=== PATIENT | female | born 1970 | race Caucasian/White ===

== ENCOUNTER 2021-09-11 16:31 | Emergency (ER) | payer OTHER, SELFPAY ==
[2021-09-11 16:38] VITALS: BP 140/78; PULSE 96; RESP 20; TEMP 36.7; O2SAT 98
--- NOTE | 2021-09-11 16:43 | ED.SKABFB ---
HPI - Skin/Abscess/Foreign Bdy General Chief complaint: Skin/Abscess/Foreign Body Stated complaint: Rt Hand Irritation Time Seen by Provider: 09/11/21 16:40 Source: patient Mode of arrival: ambulatory Limitations: no limitations History of Present Illness HPI narrative: Ms. Correa is a 51-year-old female patient presenting to the clinic today with complaints of right palm irritation x1 year. She reports the rash started with some blistering that was very itchy and has gradually gotten worse over the last year. She works at [employer] and she states that it is becoming an issue. Does report that the rash is itchy and very dry. No known exposure to any new environmental changes, detergents, soaps, lotions, or animals. MD complaint: rash Related Data Allergies Allergy/AdvReac Type Severity Reaction Status Date / Time guaifenesin Allergy Unknown Hives / Verified 09/11/21 16:47 Red Face Review of Systems Review of Systems: Pertinent positives per HPI. Patient denies any fever, chills, headache, visual changes, dizziness, cough, runny nose, sore throat, shortness of breath, chest pain, palpitations, nausea, vomiting, diarrhea, constipation, abdominal pain, or any urinary issues. PMFSH Comments At the time of my signature, I reviewed and agree with the nursing past medical, surgical, social, and family history. There is no relevant family history pertinent to the patient complaint. Exam Narrative: General: Well-developed, well nourished, in no apparent distress Head: Normocephalic, atraumatic. Cardio: Regular rate and rhythm, s1 and s2 normal, no murmur appreciated. Resp: Clear to auscultation bilaterally, no rhonchi, rales, wheezing or rubs. Integumentary: [place], warm, and dry, red itchy scaly dry rash with clear fluid-filled blistering to the right palm, mild peeling of skin borders. Course Course Emergency Course: Portions of this record may have been created with voice recognition software. Level of Care: Express Care Visit Vital Signs Vital signs: Vital Signs Temperature 36.7 C 09/11/21 16:38 Pulse Rate 96 09/11/21 16:38 Respiratory Rate 20 09/11/21 16:38 Blood Pressure 140/78 09/11/21 16:38 Pulse Oximetry 98 09/11/21 16:38 Temperature 36.7 C 09/11/21 16:38 Pulse Rate 96 09/11/21 16:38 Respiratory Rate 20 09/11/21 16:38 Blood Pressure 140/78 09/11/21 16:38 Pulse Oximetry 98 09/11/21 16:38 Vital signs reviewed MDM - Skin/Abscess/Foreign Bdy MDM Narrative Medical decision making narrative: At the time of assessment patient is resting comfortably on the exam chair. She reports that she has had this rash on her pump for approximately 1 year. Denies applying any creams to her palm except for lotion. States it is gradually getting worse. With the appearance of the rash it appears that she has dyshidrotic eczema. Prescription for triamcinolone ointment given and supportive measures discussed with patient. Differential Diagnosis Differential diagnosis: Likely abscess of skin or subcutaneous tissue, viral exanthem, dermatophytosis, urticaria, herpes zoster, allergic reaction to drug, cellulitis, eczema, insect bites, impetigo and contact dermatitis Discharge Plan Discharge Clinical Impression: Dyshidrotic dermatitis Patient Disposition: Home, Self-Care Condition: Stable Instructions: Antibiotic Form, Dermatitis (ED) Additional Instructions: Moisturize hands/ skin twice daily Apply triamcinolone ointment to affected area twice a day for 7 days Avoid scratching Avoid hot showers May take Benadryl as needed for itching Follow-up with your PCP in 7 days if symptoms are persisting or sooner if they worsen. Prescriptions: New triamcinolone acetonide 0.1 % ointment 1 applic topical BID 7 Days Qty: 80 RF: 0 Follow-up/Referrals: PHYSICIAN,SERVICE OPERATOR [Primary Care Provider] - Time of Disposition: 16:55 Quality [facility] Nursing Documentatio
== END 2021-09-11 17:00 | disposition home or self-care (01) ==
PROVIDERS: Emergency Provider Nurse Practitioner Family
DX: L30.1 Dyshidrosis [pompholyx] (principal)
CPT/HCPCS: 99213; G0463

== ENCOUNTER 2021-09-24 06:54 | Emergency (ER) | payer OTHER, SELFPAY ==
--- NOTE | ~2021-09-24 | CT_ITS ---
EXAMINATION: CT abdomen pelvis wo con DATE: 09/24/2021 10:10 INDICATION: Urinary tract infection and hematuria TECHNIQUE: Computed tomography (CT) of the abdomen and pelvis was performed without intravenous contr ast. Automated exposure control and iterative reconstruction technique were employed. The dose-length product was 394.70 mGy-cm. COMPARISON: None FINDINGS: Lung bases are clear. Heart size is normal. No pericardial or pleural effusion. 8 mm cyst in segment IVb of the liver. Gallbladder, spleen, pancreas and bilateral adrenal glands are normal. Kidneys and ureters are normal with no urolithiasis, hydroureteronephrosis or perinephric/ureteral stranding. Madi dder, uterus and right adnexa are normal. 2.3 cm left ovarian cyst/follicle. Bowels including the viri endix are normal. No free intraperitoneal gas or fluid. No pathologically enlarged abdominal or pelvi c lymphadenopathy. Moderate to severe disc height loss with vacuum phenomena and degenerative endplat e changes at L4-L5. IMPRESSION: 1. No urolithiasis or acute intra-abdominal/pelvic process. Reviewed, dictated and finalized at location A.
[2021-09-24 06:57] VITALS: BP 126/74; PULSE 115; RESP 18; TEMP 36.6; O2SAT 99
[2021-09-24 07:37] LABS: Add Urine Microscopic? YES; Appearance Urine Cloudy (Clear); Bacteria Urine Trace /hpf; Bilirubin Urine Negative (Negative); Blood Urine 3+ (Negative); Color Urine Yellow (Yellow); Glucose Urine UA Negative (Negative); Ketones Urine Negative (Negative); Leukocyte Esterase Ur 3+ LEU/UL (Negative); Nitrate Urine Negative (Negative); Protein Urine Negative (Negative); RBC Urine 21-50 /hpf (0-2); Specific Grav Ur 1.011 (1.001-1.035); Squamous Epithelial Cell Urine Few /hpf (Few); Urobilinogen Urine Negative mg/dL (<2.0); WBC Urine >75 /hpf
[2021-09-24 07:42] LABS: Basophils Percent Auto 0.4 % (0.2-1.2); Eosinophils Absolute Auto 0.3 K/mm3 (0-0.3); Eosinophils Percent Auto 2.9 % (0-4.4); Hematocrit 41.2 % (37.0-47.0); Hemoglobin 13.6 g/dL (12.0-15.0); Immature Granulocyte Absolute 0.05 K/mm3 (0.00-0.031); Immature Granulocyte Percent A 0.5 % (0-0.5); Lymphocytes Absolute Auto 0.65 K/mm3 (0.9-3.2); Lymphocytes Percent Auto 6.7 % (18.3-44.2); Mean Corpuscular Hemoglobin 29.2 pg (26-34); Mean Corpuscular Volume 88.6 fl (80-100); Mean Platelet Volume 9.3 fl (7.4-10.4); Monocytes Absolute Auto 0.6 K/mm3 (0.1-0.6); Neutrophils Absolute Auto 8.1 K/mm3 (1.3-6.7); Neutrophils Percent Auto 83.5 % (45.5-73.1); Platelet Count Result 182 k/mm3 (150-375); Red Blood Count 4.65 M/mm3 (4.2-5.4); Red Cell Distribution Width 13.2 % (11.5-14.5); White Blood Count 9.7 K/mm3 (4.5-10.0)
[2021-09-24 07:45] LABS: Alanine Aminotransferase 93 U/L (4-35); Albumin Level 4.1 g/dL (3.5-5.1); Alkaline Phosphatase 107 U/L (38-126); Anion Gap 7 mmol/L (8-16); Aspartate Amino Transferase 94 U/L (14-36); Bilirubin,Total 0.1 mg/dL (0.2-1.3); Blood Urea Nitrogen 7 mg/dL (7-17); Calcium 8.3 mg/dL (8.4-10.2); Carbon Dioxide 26 mmol/L (22-30); Chloride 102 mmol/L (98-107); Estimated CRCL calculation 81 ml/min; Estimated Glomerular Filt Rate > 60; Glucose 121 mg/dL (65-110); Potassium 3.9 mmol/L (3.4-5.0); Sodium 135 mmol/L (137-145)
--- NOTE | 2021-09-24 09:27 | WPDEDEXPGENP ---
HPI - General Ped General Chief complaint: Fever Stated complaint: fever, bloody urine Time Seen by Provider: 09/24/21 07:04 Source: patient Mode of arrival: ambulatory History of Present Illness HPI narrative: 51-year-old female presenting to the emergency department for evaluation of 3 days of lower abdominal pain. Patient states over the last 3 days she has had increased urinary pain and strong smelling urine associated with abdominal cramping. Patient does report subjective fever. Patient does have a remote history of UTI. Patient denies any prior history of kidney stones. Past medical history patient denies any prior history of hypertension, diabetes. Related Data Allergies Allergy/AdvReac Type Severity Reaction Status Date / Time guaifenesin Allergy Unknown Hives / Verified 09/11/21 16:47 Red Face Pediatric Review of Systems Review of Systems: CONSTITUTIONAL: Subjective fever EYES: Denies visual changes, redness, or discharge. ENT: Denies rhinorrhea, congestion, sore throat, or otalgia. CARDIOVASCULAR: Denies chest pain, palpitations, or edema. RESPIRATORY: Denies cough or dyspnea. GASTROINTESTINAL: Suprapubic abdominal pain with associated nausea without vomiting GENITOURINARY: Denies dysuria or hematuria. SKIN: Denies rash or itching. MUSCULOSKELETAL: Lower back pain NEUROLOGIC: Denies headache, numbness, or weakness. Pediatric Exam Narrative: Physical exam: APPEARANCE: Well appearing, no pain, no distress, well-nourished. HEAD: normocephalic, atraumatic. EYES: PERRLA/EOMI, conjunctivae clear. NOSE: Normal no drainage NECK: Supple. No adenopathy, no masses. RESPIRATORY: Airway patent, respirations nonlabored. Clear to auscultation bilaterally, no rales, rhonchi, wheezing. CARDIOVASCULAR: Regular rate and rhythm without murmurs rubs or gallops. ABDOMINAL: Soft, nondistended, normal bowel sounds. No CVA tenderness to palpation. Patient did have some suprapubic tenderness to palpation MUSCULOSKELETAL: Moves all extremities. Strength/ROM intact, No edema, No calf tenderness. NEURO: Alert. Cranial nerves II through XII intact. Grossly intact SKIN: Warm, dry. Normal Color PSYCHIATRIC: Normal affect/mood. Course Course Emergency Course: Patient was treated for urinary tract infection. CT showed no evidence of kidney stone. Patient was also provided Pyridium for additional pain control. Patient was encouraged to have close follow-up with her primary care physician. All questions and concerns were addressed. Vital Signs Vital signs: Vital Signs Temperature 97.8 F 09/24/21 06:57 Pulse Rate 115 H 09/24/21 06:57 Respiratory Rate 18 09/24/21 06:57 Blood Pressure 126/74 09/24/21 06:57 Pulse Oximetry 99 09/24/21 06:57 Temperature 97.8 F 09/24/21 06:57 Pulse Rate 90 09/24/21 11:04 Respiratory Rate 16 09/24/21 11:04 Blood Pressure 103/80 09/24/21 11:04 Pulse Oximetry 99 09/24/21 06:57 Medical Decision Making Vital Signs Vital Signs: Vital Signs Temperature 97.8 F 09/24/21 06:57 Pulse Rate 115 H 09/24/21 06:57 Respiratory Rate 18 09/24/21 06:57 Blood Pressure 126/74 09/24/21 06:57 Pulse Oximetry 99 09/24/21 06:57 Temperature 97.8 F 09/24/21 06:57 Pulse Rate 90 09/24/21 11:04 Respiratory Rate 16 09/24/21 11:04 Blood Pressure 103/80 09/24/21 11:04 Pulse Oximetry 99 09/24/21 06:57 Lab Data Lab results reviewed: Yes I reviewed the patient's lab results. Result diagrams: 09/24/21 07:23 09/24/21 07:23 Labs: Lab Results 09/24/21 09/24/21 09/24/21 Range/Units 07:23 07:23 07:23 WBC 9.7 (4.5-10.0) K/mm3 RBC 4.65 (4.2-5.4) M/mm3 Hgb 13.6 (12.0-15.0) g/dL Hct 41.2 (37.0-47.0) % MCV 88.6 (80-100) fl MCH 29.2 (26-34) pg MCHC 33.0 (32-36) g/dl RDW 13.2 (11.5-14.5) % Plt Count 182 (150-375) k/mm3 MPV 9.3 (7.4-10.4) fl Immature Gran % (Auto) 0.5 (0-0.5) %
[2021-09-24] MEDS: PHENAZOPYRIDINE HCL 100 MG TABLET 200 MG PO (10:59)
[2021-09-24] MEDS: CEPHALEXIN 500 MG CAPSULE PO (11:00)
[2021-09-24 11:04] VITALS: BP 103/80; PULSE 90; RESP 16
== END 2021-09-24 11:05 | disposition home or self-care (01) ==
PROVIDERS: Emergency Provider Emergency Medicine
DX: N39.0 Urinary tract infection, site not specified (principal)
CPT/HCPCS: 36415; 74176; 80053; 81001; 81025; 83605; 85025; 87077; 87086; 87088; 87186; 99284; A9270

== ENCOUNTER 2021-10-02 09:27 | Emergency (ER) | payer OTHER, SELFPAY ==
[2021-10-02 09:30] VITALS: BP 134/75; PULSE 100; RESP 18; O2SAT 98
[2021-10-02] MEDS: AMPICILLIN SULB 3 GM/NS 100 ML 3 GM/100 ML VIAL IVPB (10:00)
--- NOTE | 2021-10-02 10:04 | ED.ANIMALBIT ---
HPI - Animal Bite General Chief Complaint: Animal Bite Stated Complaint: Bilateral Arm Injury, Cat Fight Time Seen by Provider: 10/02/21 09:30 Source: patient Mode of arrival: ambulatory Limitations: no limitations History of Present Illness HPI narrative: 51-year-old female presenting to the emergency department for evaluation of multiple bites and scratches that occurred after she attempted to break up a fight between her cat and dog. Patient states this injury occurred at approximately 10 PM last night. Patient has multiple bites and abrasions to bilateral forearms and onto the dorsum of the right hand. Patient is unsure of her last tetanus. The animals are her own pets and they are up-to-date on their immunizations. Related Data Allergies Allergy/AdvReac Type Severity Reaction Status Date / Time guaifenesin Allergy Unknown Hives / Verified 10/02/21 09:35 Red Face Review of Systems Review of Systems: CONSTITUTIONAL: Denies fever, chills, or sweats. EYES: Denies visual changes, redness, or discharge. ENT: Denies rhinorrhea, congestion, sore throat, or otalgia. CARDIOVASCULAR: Denies chest pain, palpitations, or edema. RESPIRATORY: Denies cough or dyspnea. GASTROINTESTINAL: Denies abdominal pain, nausea, vomiting, or diarrhea. GENITOURINARY: Denies dysuria or hematuria. SKIN: See HPI MUSCULOSKELETAL: Denies back pain, joint pain, or myalgia. NEUROLOGIC: Denies headache, numbness, or weakness. Exam Narrative: APPEARANCE: Well appearing, no pain, no distress, well-nourished. HEAD: normocephalic, atraumatic. RESPIRATORY: Airway patent, respirations nonlabored. Clear to auscultation bilaterally, no rales, rhonchi, wheezing. CARDIOVASCULAR: Regular rate and rhythm without murmurs rubs or gallops. MUSCULOSKELETAL: Moves all extremities. NEURO: Alert. Cranial nerves II through XII intact. Good gait. Good coordination SKIN: Multiple superficial abrasions to bilateral forearms. No active bleeding. Mild swelling of the dorsum of the right hand. Course Course Emergency Course: Patient was treated with 3 g of Unasyn in the ED. Patient will be discharged home with Augmentin. Patient's tetanus was updated. Vital Signs Vital signs: Vital Signs Pulse Rate 100 10/02/21 09:30 Respiratory Rate 18 10/02/21 09:30 Blood Pressure 134/75 10/02/21 09:30 Pulse Oximetry 98 10/02/21 09:30 Pulse Rate 100 10/02/21 09:30 Respiratory Rate 18 10/02/21 09:30 Blood Pressure 134/75 10/02/21 09:30 Pulse Oximetry 98 10/02/21 09:30 MDM - Animal Bite Differential Diagnosis Differential diagnosis: Likely bite by animal and cat bite Discharge Plan Discharge Clinical Impression: Cat bite Qualifiers: Encounter type: initial encounter Qualified Code(s): W55.01XA - Bitten by cat, initial encounter Patient Disposition: Home, Self-Care Condition: Stable Instructions: Antibiotic Form, Animal Bite (ED) Additional Instructions: Antibiotics as directed until completed. Ibuprofen for pain control. [place] as needed for additional pain control. Have close follow-up with your primary care physician. If you have any worsening symptoms then please call or return to the emergency department. Prescriptions: New amoxicillin-pot clavulanate 875-125 mg tablet 1 tablet PO Q12H Qty: 14 RF: 0 hydrocodone-acetaminophen 5-325 mg tablet 1 tablet PO Q8H PRN (Reason: pain) Qty: 10 RF: 0 No Action triamcinolone acetonide 0.1 % ointment 1 applic topical BID 7 Days Qty: 80 RF: 0 phenazopyridine [Pyridium] 100 mg tablet 100 mg PO TID PRN (Reason: pain) Qty: 6 RF: 0 cephalexin 500 mg capsule 500 mg PO Q12H 7 Days Qty: 14 RF: 0 Follow-up/Referrals: PHYSICIAN,ENVIRONMENTAL ENGINEERING MANAGER [Primary Care Provider] -
[2021-10-02] MEDS: TETANUS,DIPHTHERIA,AC PERTUSSIS ADULT (0.5 ML) BOOSTRIX IM (10:07)
[2021-10-02] MEDS: HYDROcodone/acetaminophen (*CRX) 5-325 MG TABLET 1 TAB PO (10:12)
== END 2021-10-02 11:06 | disposition home or self-care (01) ==
PROVIDERS: Emergency Provider Emergency Medicine
DX: S50.812A Abrasion of left forearm, initial encounter (principal); S50.811A Abrasion of right forearm, initial encounter; Z23 Encounter for immunization; W55.01XA Bitten by cat, initial encounter
CPT/HCPCS: 90471; 90715; 96365; 99284; A9270; J0295

== ENCOUNTER 2021-10-04 15:08 | Emergency (ER) | payer OTHER, SELFPAY ==
[2021-10-04 15:10] VITALS: BP 154/68; PULSE 100; RESP 18; TEMP 36.6; O2SAT 100
--- NOTE | 2021-10-04 15:21 | ED.WOUNDLAC ---
HPI - Wound/Laceration General Chief Complaint: Wound/Laceration Stated Complaint: cat scratch with redness and drainage Time Seen by Provider: 10/04/21 15:17 History of Present Illness HPI narrative: 51-year-old female presents to the emergency room for evaluation of multiple cat scratches to her right hand. Patient was seen in the emergency room 2 days ago for similar symptoms, was started on Augmentin the following IV Ancef. Patient states the redness and swelling have worsened and has noticed an area over her right index finger that is started to drain purulent discharge. Related Data Allergies Allergy/AdvReac Type Severity Reaction Status Date / Time guaifenesin Allergy Unknown Hives / Verified 10/04/21 15:19 Red Face Review of Systems Review of Systems: CONSTITUTIONAL: Denies fever, chills, or sweats. EYES: Denies visual changes, redness, or discharge. ENT: Denies rhinorrhea, congestion, sore throat, or otalgia. CARDIOVASCULAR: Denies chest pain, palpitations, or edema. RESPIRATORY: Denies cough or dyspnea. GASTROINTESTINAL: Denies abdominal pain, nausea, vomiting, or diarrhea. GENITOURINARY: Denies dysuria or hematuria. SKIN: Denies rash or itching. MUSCULOSKELETAL: Reports right hand and forearm pain NEUROLOGIC: Denies headache, numbness, dizziness, or weakness. PSYCHIATRIC: Denies anxiety or depression. Exam Narrative: GENERAL: Well-appearing, well-nourished, and in no acute distress. HEAD: Normocephalic, atraumatic. EYES: PERRLA and EOMI. ENT: Nares clear, no rhinorrhea or epistaxis. Mucous membranes moist. Oropharynx without tonsillar hypertrophy exudate or other lesions. Bilateral TMs pearly corley nonbulging NECK: Supple. No adenopathy or masses. No carotid bruits or JVD CHEST: Clear to auscultation. No respiratory distress. No wheezes rales or rhonchi HEART: Regular rate and rhythm. No murmur heard. Normal peripheral pulses. ABDOMEN: Soft, nontender, nondistended, normal active bowel sounds. EXTREMITIES: Normal range of motion. No edema. SKIN: Right hand: Erythema, soft tissue swelling noted from dorsal side of the right hand extending from the MCP joints to the forearm. Streaking noted. Purulent drainage noted from the second MCP joint NEURO: No focal deficits. Alert and oriented x3. PSYCH: Normal mood and affect. Course Course Emergency Course: 1730: Spoke to MD Valentino, hand/plastics with [facility]. He was agreeable to accept the patient. Patient refused transport by EMS, will go to [facility] via [facility]. Vital Signs Vital signs: Vital Signs Temperature 36.6 C 10/04/21 15:10 Pulse Rate 100 10/04/21 15:10 Respiratory Rate 18 10/04/21 15:10 Blood Pressure 154/68 H 10/04/21 15:10 Pulse Oximetry 100 10/04/21 15:10 Temperature 36.6 C 10/04/21 15:10 Pulse Rate 100 10/04/21 15:10 Respiratory Rate 18 10/04/21 15:10 Blood Pressure 154/68 H 10/04/21 15:10 Pulse Oximetry 100 10/04/21 15:10 MDM - Wound/Laceration Lab Data Result diagrams: 10/04/21 15:52 Labs: Lab Results 10/04/21 Range/Units 15:52 WBC 13.1 H (4.5-10.0) K/mm3 RBC 4.28 (4.2-5.4) M/mm3 Hgb 12.7 (12.0-15.0) g/dL Hct 38.4 (37.0-47.0) % MCV 89.7 (80-100) fl MCH 29.7 (26-34) pg MCHC 33.1 (32-36) g/dl RDW 13.2 (11.5-14.5) % Plt Count 295 D (150-375) k/mm3 MPV 8.9 (7.4-10.4) fl Immature Gran % (Auto) 0.3 (0-0.5) % Neut % (Auto) 80.9 H (45.5-73.1) % Lymph % (Auto) 11.7 L (18.3-44.2) % [place] % (Auto) 4.9 (2.6-8.5) % Eos % (Auto) 1.8 (0-4.4) % Baso % (Auto) 0.4 (0.2-1.2) % Lymph # (Auto) 1.54 (0.9-3.2) K/mm3 [place] # (Auto) 0.6 (0.1-0.6) K/mm3 Eos # (Auto) 0.2 (0-0.3) K/mm3 Baso # (Auto) 0.1 (0.0-0.1) K/mm3 Abs Immat Gran (auto) 0.04 H (0.00-0.031) K/mm3 Absolute Neuts (auto) 10.6 H (1.3-6.7) K/mm3 Absolute Nucleated RBC 0.0 (0.0-0.012) K/mm3 Nucleated RBC % 0.0 (0.0-0.2) % Discharge Plan Discharge Clinical Impression
[2021-10-04 16:04] LABS: Basophils Absolute Auto 0.1 K/mm3 (0.0-0.1); Basophils Percent Auto 0.4 % (0.2-1.2); Eosinophils Absolute Auto 0.2 K/mm3 (0-0.3); Eosinophils Percent Auto 1.8 % (0-4.4); Hematocrit 38.4 % (37.0-47.0); Hemoglobin 12.7 g/dL (12.0-15.0); Immature Granulocyte Absolute 0.04 K/mm3 (0.00-0.031); Immature Granulocyte Percent A 0.3 % (0-0.5); Lymphocytes Absolute Auto 1.54 K/mm3 (0.9-3.2); Lymphocytes Percent Auto 11.7 % (18.3-44.2); Mean Corpuscular HGB Conc 33.1 g/dl (32-36); Mean Corpuscular Hemoglobin 29.7 pg (26-34); Mean Corpuscular Volume 89.7 fl (80-100); Mean Platelet Volume 8.9 fl (7.4-10.4); Monocytes Absolute Auto 0.6 K/mm3 (0.1-0.6); Monocytes Percent Auto 4.9 % (2.6-8.5); Neutrophils Absolute Auto 10.6 K/mm3 (1.3-6.7); Neutrophils Percent Auto 80.9 % (45.5-73.1); Platelet Count Result 295 k/mm3 (150-375); Red Blood Count 4.28 M/mm3 (4.2-5.4); Red Cell Distribution Width 13.2 % (11.5-14.5); White Blood Count 13.1 K/mm3 (4.5-10.0)
[2021-10-04] MEDS: CLINDAMYCIN 600 MG/D5W 50 ML 600 MG/50 ML PIGGYBACK 100 MG IVPB (16:51)
--- NOTE | 2021-10-04 17:44 | PC.NURSE ---
Report given to AKHIL Soto at [facility] @[id number].
[2021-10-04 17:46] VITALS: BP 125/82; PULSE 92; RESP 18; TEMP 37.1; O2SAT 100
== END 2021-10-04 17:56 | disposition short-term general hospital (02) ==
PROVIDERS: Emergency Provider Nurse Practitioner Family
DX: L03.011 Cellulitis of right finger (principal); L02.511 Cutaneous abscess of right hand; S60.414A Abrasion of right ring finger, initial encounter; W55.03XA Scratched by cat, initial encounter
CPT/HCPCS: 36415; 85025; 96365; 99284

== ENCOUNTER 2023-04-29 16:27 | Emergency (ER) | payer MEDICAID, SELFPAY ==
--- NOTE | 2023-04-29 16:38 | ED.ANIMALBIT ---
HPI - Animal Bite General Chief Complaint: Animal Bite Stated Complaint: cat bite Time Seen by Provider: 04/29/23 16:38 Source: patient Mode of arrival: ambulatory Limitations: no limitations History of Present Illness HPI narrative: Jayda is a 52-year-old female patient presenting to the clinic today with complaints of a cat bite to her right index finger.. She reports she was attempting to break up the calf fight at 10:00 a.m. today when she was bit by her cat. States that the cat is up-to-date on shots. Was hospitalized and placed in the ICU for a blood infection from a cat bite back in October. Reports that she is very worried and wants to catch the infection early. Denies any fever chills. Related Data Allergies Allergy/AdvReac Type Severity Reaction Status Date / Time guaifenesin Allergy Unknown Hives / Verified 04/29/23 16:42 Red Face Review of Systems Review of Systems: Pertinent positives per HPI. Patient denies any fever, chills, rash, headache, visual changes, dizziness, cough, runny nose, sore throat, shortness of breath, chest pain, palpitations, nausea, vomiting, diarrhea, constipation, abdominal pain, or any urinary issues. PMFSH Comments At the time of my signature, I reviewed and agree with the nursing past medical, surgical, social, and family history. There is no relevant family history pertinent to the patient complaint. Exam Narrative: General: Well-developed, well nourished, in no apparent distress Head: Normocephalic, atraumatic. Cardio: Regular rate and rhythm, s1 and s2 normal, no murmur appreciated. Resp: Clear to auscultation bilaterally, no rhonchi, rales, wheezing or rubs. Integumentary: [place], warm, and dry, 2 puncture wounds measuring approximately half a cm to the knuckle of the left index finger with redness, erythema, and swelling, is having pain with flexion and extension at the MCP joint Course Course Emergency Course: Portions of this record may have been created with voice recognition software. Level of Care: Express Care Visit Vital Signs Vital signs: Vital signs reviewed MDM - Animal Bite MDM Narrative Medical decision making narrative: At the time of visit patient is resting comfortably on the exam table. She denies any fever or chills and does not appear to be toxic at this time. I suspect patient has early infection a cap bite to the right index finger over the MCP joint. Will start give Rocephin 1 g IM in the clinic today and start the patient on Augmentin. Supportive measures were discussed with the patient she voiced understanding discharge instructions and agrees to treatment plan. Return precautions were reviewed. Tetanus is up-to-date. Differential Diagnosis Differential diagnosis: Likely bite by animal and cat bite (Puncture wound, infection) Discharge Plan Discharge Clinical Impression: Infected cat bite of finger Qualifiers: Encounter type: initial encounter Qualified Code(s): S61.259A - Open bite of unspecified finger without damage to nail, initial encounter Patient Disposition: Home, Self-Care Condition: Stable Instructions: Antibiotic Form, Animal Bite (ED), Puncture Wound (ED), Wound Infection (ED) Additional Instructions: [place] 1 Gm IM given in the clinic today Tetanus is UTD Keep wound clean and dry Take Augmentin as prescribed May take Tylenol/Motrin as needed for pain or fever Increase fluids and stay well hydrated Go to the emergency room if you develop high fever not controlled by Tylenol Motrin, increase in redness, increase in swelling, increase in pain, increase in erythema, purulent discharge, or streaking Prescriptions: New amoxicillin-pot clavulanate 875-125 mg tablet 1 tablet PO Q12H 7 Days Qty: 14 0RF Follow-up/Referrals: PHYSICIAN,TALENT DEVELOPMENT SPECIALIST [Primary Care Provider] - Time of Disposition: 16:51 Quality NIHSS Nursing Documentation ED NIHSS nursing documentation: reviewed/agree
[2023-04-29 16:41] VITALS: BP 145/75; PULSE 102; RESP 16; TEMP 36.8; O2SAT 100
[2023-04-29 16:42] VITALS: BP 145/75; PULSE 102; RESP 16; TEMP 36.8; O2SAT 100
[2023-04-29] MEDS: cefTRIAXone 1 GM, LIDOCAINE HCL 1% LOCAL INJ 2.1 ML IM (16:56)
== END 2023-04-29 17:06 | disposition home or self-care (01) ==
PROVIDERS: Emergency Provider Nurse Practitioner Family
DX: S61.251A Open bite of left index finger without damage to nail, initial encounter (principal); L08.9 Local infection of the skin and subcutaneous tissue, unspecified; W55.01XA Bitten by cat, initial encounter
CPT/HCPCS: 96372; 99213; G0463; J0696

== ENCOUNTER 2023-05-16 02:28 | Emergency (ER) | payer OTHER, SELFPAY ==
--- NOTE | ~2023-05-16 | XR_ITS ---
Left Hand Technique: PA, oblique, and lateral views were obtained. Clinical History: Crush injury Findings: No acute fracture or dislocation is seen. Osseous alignment is anatomic. Joint spaces are p reserved. Soft tissues are unremarkable. Impression: Unremarkable left hand. Reviewed, dictated and finalized at location . L SPAR OPERATOR Impression: Unremarkable left hand.
[2023-05-16 02:29] VITALS: BP 119/68; PULSE 86; RESP 16; TEMP 36.3; O2SAT 97
[2023-05-16 02:45] VITALS: BP 119/79; PULSE 88; RESP 16; TEMP 36.6; O2SAT 97
--- NOTE | 2023-05-16 03:24 | ED.UPPEXIN ---
HPI - Extremity Injury (Upper) General Chief Complaint: Extremity Injury, Upper Stated Complaint: left hand injury Time Seen by Provider: 05/16/23 03:09 History of Present Illness HPI narrative: patient presents to the emergency department with a left hand injury. She crushed her hand between a water heater and the truck bed. He came to the emergency department right after it happened. Has not taken anything for pain. Has bruising and swelling along the lateral aspect of her 5th metacarpal and left 5th finger Related Data Allergies Allergy/AdvReac Type Severity Reaction Status Date / Time guaifenesin Allergy Unknown Hives / Verified 04/29/23 16:42 Red Face Review of Systems Review of Systems: negative except what is documented in the HPI Exam Narrative: GENERAL: Well-appearing, well-nourished, and in no acute distress. HEAD: Normocephalic, atraumatic. NECK: Supple. CHEST: No respiratory distress. HEART: Regular rate and rhythm. EXTREMITIES: left lateral hand bruising and swelling and tenderness. left finger bruising and tenderness SKIN: Warm, dry, no rash. NEURO: No focal deficits. Alert and oriented x3. PSYCH: Normal mood and affect. Course Course Emergency Course: left hand x-ray evaluated by myself. No obvious bony fracture or dislocation. Results discussed with patient. She was advised radiologist will do final read in the morning. For now will DC with splint and pain medication Vital Signs Vital signs: Vital Signs Temperature 36.3 C L 05/16/23 02:29 Pulse Rate 86 05/16/23 02:29 Respiratory Rate 16 05/16/23 02:29 Blood Pressure 119/68 05/16/23 02:29 Pulse Oximetry 97 05/16/23 02:29 Oxygen Delivery Room Air 05/16/23 02:29 Temperature 36.6 C 05/16/23 02:45 Pulse Rate 88 05/16/23 02:45 Respiratory Rate 16 05/16/23 02:45 Blood Pressure 119/79 05/16/23 02:45 Pulse Oximetry 97 05/16/23 02:45 Oxygen Delivery Room Air 05/16/23 02:29 Discharge Plan Discharge Clinical Impression: Hand crush injury Qualifiers: Encounter type: initial encounter Laterality: left Qualified Code(s): S67.22XA - Crushing injury of left hand, initial encounter Patient Disposition: Home, Self-Care Condition: Stable Instructions: Antibiotic Form, Crush Injury (ED) Additional Instructions: keep hand elevated and apply ice for pain and swelling wear splint for comfort ibuprofen every 6-8 hours for pain and swelling Vicodin as needed for breakthrough pain, 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
[2023-05-16] MEDS: IBUPROFEN 600 MG TABLET PO (03:27)
[2023-05-16] MEDS: HYDROcodone/acetaminophen (*CRX) 5-325 MG TABLET 1 TAB PO (03:27)
--- NOTE | 2023-05-16 03:43 | PC.NURSE ---
When patient was asked which splint she preferred the patient told nursing staff and EDP Dr. Uriostegui that she did not want any splint.
[2023-05-16 03:44] VITALS: BP 112/76; PULSE 90; RESP 14; TEMP 36.7; O2SAT 100
== END 2023-05-16 03:45 | disposition home or self-care (01) ==
LOC: ANHED 03:36
PROVIDERS: Emergency Provider Emergency Medicine
DX: S67.22XA Crushing injury of left hand, initial encounter (principal); W23.0XXA Caught, crushed, jammed, or pinched between moving objects, initial encounter
CPT/HCPCS: 73130; 99283; A9270